=== PATIENT | female | born 1945 | race Caucasian/White ===

== ENCOUNTER 2020-11-15 20:24 | Emergency (ER) | payer OTHER ==
[~2020-11-15] VITALS: Ht 165.1 cm; Wt 54.4 kg
[2020-11-15 20:30] VITALS: BP 170/61
--- NOTE | 2020-11-15 20:30 | NUR ---
TO BED AMBULATORY
--- NOTE | 2020-11-15 20:50 | NUR ---
RECEIVED IN BED 4 WITH C/O ABDOMINAL PAIN X 3 DAYS. PTS DAUGHTER STATES, HER MOTHER SHE HAD HER GALLBLADDER OUT 1 YEAR AGO. ABDOMEN IS SOFT, ROUND AND SLIGHTLY TENDER TO TOUCH . PAIN GREATER IN SUPRAPUBIC AREA.
[2020-11-15] MEDS ORDERED: CIPR500T4 PO (21:30)
[2020-11-15] MEDS ORDERED: IBUP-2213 PO (21:30)
--- NOTE | 2020-11-15 21:49 | NUR ---
Patient discharged with v/s stable. Written and verbal after care instructions given and explained. Patient alert, oriented and verbalized understanding of instructions. Ambulatory with steady gait. All questions addressed prior to discharge. ID band removed. Patient advised to follow up with PMD. Rx of CIPRO AND MOTRIN given. Patient educated on indication of medication including possible reaction and side effects. Opportunity to ask questions provided and answered.
== END 2020-11-15 21:49 | disposition home or self-care (01) ==
LOC: MED 20:24
DX: N39.0 Urinary tract infection, site not specified (principal); I10 Essential (primary) hypertension
CPT/HCPCS: 81002; 99283

== ENCOUNTER 2023-06-13 20:24 | Emergency (ER) | payer OTHER ==
[~2023-06-13] VITALS: Ht 165.1 cm; Wt 47.6 kg
[~2023-06-13 20:24] MED LIST: CIPR500T4 PO; IBUP-2213 PO
[2023-06-13 20:29] VITALS: BP 161/135; PULSE 84; RESP 16; TEMP 98.9; O2SAT 98
[2023-06-13 22:39] LABS: BASOPHILS % (AUTO) 0.4 % (0.0-2.0); EOSINOPHILS # (AUTO) 0.1 K/uL (0-0.4); EOSINOPHILS % (AUTO) 0.8 % (0.0-4.0); HEMOGLOBIN 12.8 g/dL (12.0-16.0); LYMPHOCYTES # (AUTO) 1.4 K/uL (2.5-16.5); MEAN CORPUSCULAR HEMOGLOBIN 33 pg (27-31); MEAN CORPUSCULAR HGB CONC 35 g/dL (33-37); MEAN CORPUSCULAR VOLUME 94.2 fL (80-94); MONOCYTES # (AUTO) 0.6 K/uL (0.8-1.0); MONOCYTES % (AUTO) 7.2 % (1.7-9.3); NEUTROPHILS % (AUTO) 74.6 % (42.2-75.2); PLATELET COUNT (AUTO) 220 K/uL (140-450); RED BLOOD CELL COUNT(AUTO) 3.93 MIL/uL (4.20-5.40); RED CELL DISTRIBUTION WIDTH 12.9 % (11.6-13.7)
[2023-06-13 23:04] LABS: ANION GAP 10.1 (8-16); CALCIUM 9.2 mg/dL (8.5-10.1); CARBON DIOXIDE 28.4 mmol/L (21-32); CHLORIDE 104 mmol/L (98-107); CREATININE 1.1 mg/dL (0.6-1.3); GLUCOSE 145 mg/dL (74-106); POTASSIUM 3.5 mmol/L (3.5-5.1); SODIUM SERUM 139 mmol/L (136-145); UREA NITROGEN, BLOOD 19 mg/dL (7-18)
[2023-06-13 23:05] LABS: INR 1.01 (0.8-1.2); PARTIAL THROMBOPLASTIN TIME 28.1 secs (22-35.6); PROTHROMBIN TIME 10.6 secs (10.8-13.4)
[2023-06-13 23:11] LABS: ALANINE AMINOTRANSFERASE 22 U/L (12-78); ALBUMIN 3.7 g/dL (3.4-5.0); ALKALINE PHOSPHATASE 98 U/L (50-136); ASPARTATE AMINOTRANSFERASE 24 U/L (15-37); BILIRUBIN,DIRECT 0.1 mg/dL (0.0-0.3); TOTAL BILIRUBIN 0.6 mg/dL (0.0-1.0); TOTAL PROTEIN, SERUM 9.4 g/dL (6.4-8.2)
[2023-06-14] MEDS: LORazepam 0.5 MG TAB PO ONE (01:18)
[2023-06-14] MEDS: LABETALOL 20 MG/4 ML VIAL IVP ONE (01:25)
[2023-06-14 03:10] VITALS: BP 140/70; PULSE 80; RESP 16; TEMP 98.9; O2SAT 98
[2023-06-14 03:13] LABS: APPEARANCE,URINE CLEAR (CLEAR); BILIRUBIN,URINE NEGATIVE (NEGATIVE); BLOOD, URINE TRACE-I (NEGATIVE); COLOR,URINE YELLOW (YELLOW); LEUKOCYTE ESTERASE ,URINE NEGATIVE (NEGATIVE); NITRITE, URINE NEGATIVE (NEGATIVE); PROTEIN,URINE NEGATIVE (NEGATIVE); UGLUCOSE NEGATIVE (NEGATIVE); UROBILINOGEN,URINE 0.2 EU/dL (0.2 - 1)
== END 2023-06-14 03:10 | disposition home or self-care (01) ==
LOC: MED 20:24
DX: I16.0 Hypertensive urgency (principal); R07.9 Chest pain, unspecified; F41.9 Anxiety disorder, unspecified; Z79.899 Other long term (current) drug therapy
CPT/HCPCS: 36415; 71045; 80048; 80076; 81003; 83880; 84484; 85025; 85610; 85730; 93005; 96374; 99285; J3490